=== PATIENT | female | born 1940 | race Two or more races ===

== ENCOUNTER 2021-11-11 10:12 | Emergency (ER) | payer OTHER ==
[~2021-11-11] VITALS: Ht 160 cm; Wt 65.3 kg
[2021-11-11] MEDS ORDERED: LEVOTHYROXINE25 MCG PO (10:25)
[2021-11-11] MEDS ORDERED: ULTRAM50 MG PO (10:25)
[2021-11-11] MEDS ORDERED: MELOXICAM7.5 MG PO (10:33)
[2021-11-11] MEDS ORDERED: HYDROXYCHLOROQ200 MG PO (10:34)
[2021-11-11] MEDS ORDERED: ZETIA10 MG PO (10:34)
[2021-11-11] MEDS ORDERED: RAYOS5 MG PO (10:34)
== END 2021-11-11 22:32 | disposition home or self-care (01) ==
LOC: ER 10:12
DX: S22.41XA Multiple fractures of ribs, right side, initial encounter for closed fracture (principal); S62.601A Fracture of unspecified phalanx of left index finger, initial encounter for closed fracture; W18.2XXA Fall in (into) shower or empty bathtub, initial encounter; Y92.012 Bathroom of single-family (private) house as the place of occurrence of the external cause; E03.9 Hypothyroidism, unspecified; M32.9 Systemic lupus erythematosus, unspecified

== ENCOUNTER 2021-11-17 08:33 | Outpatient (CLI) | payer OTHER ==
[~2021-11-17 08:33] MED LIST: HYDROXYCHLOROQ200 MG PO; LEVOTHYROXINE25 MCG PO; MELOXICAM7.5 MG PO; RAYOS5 MG PO; ULTRAM50 MG PO; ZETIA10 MG PO
== END 2021-11-17 08:38 | disposition home or self-care (01) ==
LOC: RAD 08:33
PROVIDERS: ATTEND Orthopaedic Surgery
DX: Z76.89 Persons encountering health services in other specified circumstances (principal); S22.41XA Multiple fractures of ribs, right side, initial encounter for closed fracture; S62.337A Displaced fracture of neck of fifth metacarpal bone, left hand, initial encounter for closed fracture; S27.0XXA Traumatic pneumothorax, initial encounter

== ENCOUNTER 2021-12-09 11:14 | Outpatient (CLI) | payer OTHER | END 2021-12-09 11:15 | disposition home or self-care (01) | LOC: RAD 11:14 | PROVIDERS: ATTEND Orthopaedic Surgery | DX: S66.325D Laceration of extensor muscle, fascia and tendon of left ring finger at wrist and hand level, subsequent encounter (principal) ==

== ENCOUNTER → 2022-11-10 09:00 | Outpatient (CLI) | payer OTHER | END | disposition home or self-care (01) | LOC: LAB 09:00 | PROVIDERS: ATTEND Orthopaedic Surgery | DX: E56.1 Deficiency of vitamin K (principal) ==